=== PATIENT | male | born 1955 | race Caucasian/White ===

== ENCOUNTER → 2019-06-27 11:34 | Outpatient (CLI) | payer MEDICARE, SELFPAY ==
[2019-06-27 12:33] LABS: BNP,B-Type NATRIURETIC PEPTIDE 388.7 pg/mL (0-100)
== END ==
PROVIDERS: Family Provider Family Medicine; PCP Family Medicine; Referring Provider Internal Medicine Pulmonary Disease; Visit Provider Internal Medicine Pulmonary Disease
DX: R06.00 Dyspnea, unspecified (principal); I50.9 Heart failure, unspecified; I25.10 Atherosclerotic heart disease of native coronary artery without angina pectoris
CPT/HCPCS: 36415; 83880

== ENCOUNTER → 2019-07-16 07:53 | Outpatient (CLI) | payer MEDICARE, SELFPAY ==
--- NOTE | 2019-07-16 07:55 | RAD_ITS ---
STUDY: SNIFF TEST. REASON FOR EXAM: Male, 64 years old. Dyspnea. FLUOROSCOPY TIME (if supplied): ( 15 seconds ) minutes/seconds. Single radiograph was obtained. TECHNIQUE: Inspiratory and expiratory imaging was performed under fluoroscopy. There is no evidence of diaphragmatic paralysis. COMPARISON: None. FINDINGS: No evidence of diaphragmatic paralysis. RAD/Chest Sniff Test Fluoro Only IMPRESSION: No evidence of diaphragmatic paralysis. Electronically Signed: Luther Oliver, at 9:23 EST , Service support ,
== END ==
PROVIDERS: Family Provider Family Medicine; PCP Family Medicine; Referring Provider Internal Medicine Pulmonary Disease; Visit Provider Internal Medicine Pulmonary Disease
DX: R06.00 Dyspnea, unspecified (principal)
CPT/HCPCS: 76000